=== PATIENT | male | born 1990 | race Caucasian/White ===

== ENCOUNTER 2017-12-25 22:28 | Emergency (ER) | payer MEDICARE, MEDICAID ==
[~2017-12-25] VITALS: Ht 177.8 cm; Wt 147.4 kg
--- NOTE | 2017-12-25 23:12 | ED Chest Pain ---
General Chief Complaint: Chest Pain Stated Complaint: CP Nursing Triage Note: PT TO ED 4 W/ C/O CHEST PAIN ONSET 15-30MIN [employer] WHILE AT [facility]. DENIES N/V, NO OTHER C/O VOICED Nursing Sepsis Screen: No Definite Risk Source: patient, other Exam Limitations: no limitations History of Present Illness Date Seen by Provider: Dec 25, 2017 Time Seen by Provider: 23:00 Initial Comments Patient presents to the ER by EMS with a chief complaint that he started having pretty severe pounding chest pain in his left chest that went down his left arm. No numbness nontender his neck or jaw. No sweats no nausea. He is mild shortness of breath but no cough. No fevers chills or vomiting. He has no prior history of coronary artery disease but he says he has a lot of heart disease in his family. No primary family with coronary artery disease before the age of 50 that he knows of. He does not have thyroid problems but he does have high blood pressure for which he took his blood pressure medicine this morning. Says his blood pressure was very elevated 170 systolic when EMS got there they gave him aspirin, nitroglycerin and his blood pressure improved and his pain improved but is now starting to come back about a 6 out of 10. No tobacco use. He denies a history of diabetes, hypercholesterolemia or thyroid disorder Allergies and Home Medications Allergies Coded Allergies: No Known Drug Allergies (Unverified , 12/25/17) Patient Home Medication List Home Medication List Reviewed: Yes Review of Systems Constitutional: No chills, No diaphoresis EENTM: No Eye Pain, No Ear Pain Respiratory: Denies Cough, Shortness of Air, SOA at Rest (mild) Cardiovascular: See HPI, Chest Pain, Denies Edema, Denies Irregular Heart Rate , Denies Lightheadedness, Palpitations, Denies Syncope Gastrointestinal: Denies Constipated, Denies Diarrhea, Denies Nausea, Denies Vomiting Genitourinary: Denies Burning, Denies Discharge Musculoskeletal: No back pain, No joint pain Skin: No pruritus, No rash Psychiatric/Neurological: Denies Headache, Denies Numbness, Denies Paresthesia Past Besrkxd-Ekpjus-Awihtk Hx Patient Social History Alcohol Use: Denies Use Recreational Drug Use: No Smoking Status: Never a Smoker Recent Foreign Travel: No Contact w/Someone Who Travel: No Recent Infectious Disease Expo: No Recent Hopitalizations: No Physical Abuse: No Sexual Abuse: No Mistreated: No Fear: No Surgeries History of Surgeries: No Respiratory History of Respiratory Disorde: No Cardiovascular History of Cardiac Disorders: Yes Cardiac Disorders: Hypertension Neurological History of Neurological Disord: Yes Neurological Disorders: Seizure Disorder Genitourinary History of Genitourinary Disor: No Gastrointestinal History of Gastrointestinal Di: No Musculoskeletal History of Musculoskeletal Dis: No Endocrine History of Endocrine Disorders: No HEENT History of HEENT Disorders: No Cancer History of Cancer: No Psychosocial History of Psychiatric Problem: No Suicide Risk Score: 0 Integumentary History of Skin or Integumenta: No Physical Exam Vital Signs Vital Signs - First Documented 12/25/17 22:29 Temp 98.1 Pulse 116 Resp 20 B/P (MAP) 150/113 (125) Pulse Ox 95 O2 Delivery Room Air Capillary Refill : Less Than 3 Seconds General Appearance: No Apparent Distress, Obese HEENT: PERRL/EOMI, Pharynx Normal Neck: Full Range of Motion, Non Tender, Supple Respiratory: Chest Non Tender, Lungs Clear, Normal Breath Sounds, No Accessory Muscle Use, No Respiratory Distress Cardiovascular: Regular Rate, Rhythm, No Edema, No JVD, No Murmur, Normal Peripheral Pulses Gastrointestinal: Normal Bowel Sounds, Non Tender, Soft Extremity: Normal Capillary Refill, Non Tender, No Pedal Edema Neurologic/Psychiatric: Alert, Oriented x3, No Motor/Sensory Deficits, Normal Mood/Affect Skin: Normal Color, Warm/Dry Progress/Results/Core Measures Results/Orders Lab Results Laboratory Tests Test 12/25/17 22:44 Range/Units White Blood Count 13.5 H 4.3-11.0 10^3/uL Red Blood Count 5.46 4.35-5.85 10^6/uL Hemoglobin 16.5 13.3-17.7 G/DL Hematocrit 47 40-54 % Mean Corpuscular Volume 86 80-99 FL Mean Corpuscular Hemoglobin 30 25-34 PG Mean Corpuscular Hemoglobin Concent 35 32-36 G/DL Red Cell Distribution Width 13.2 10.0-14.5 % Platelet Count 354 130-400 10^3/uL Mean Platelet Volume 9.2 7.4-10.4 FL Neutrophils (%) (Auto) 68 42-75 % Lymphocytes (%) (Auto) 25 12-44 % Monocytes (%) (Auto) 7 0-12 % Eosinophils (%) (Auto) 1 0-10 % Basophils (%) (Auto) 0 0-10 % Neutrophils # (Auto) 9.2 H 1.8-7.8 X 10^3 Lymphocytes # (Auto) 3.3 1.0-4.0 X 10^3 Monocytes # (Auto) 0.9 0.0-1.0 X 10^3 Eosinophils # (Auto) 0.1 0.0-0.3 10^3/uL Basophils # (Auto) 0.0 0.0-0.1 10^3/uL Prothrombin Time 13.2 12.2-14.7 SEC INR Comment 1.0 0.8-1.4 Activated Partial Thromboplast Time 31 24-35 SEC Sodium Level 141 135-145 MMOL/L Potassium Level 3.6 3.6-5.0 MMOL/L Chloride Level 107 98-107 MMOL/L Carbon Dioxide Level 23 21-32 MMOL/L Anion Gap 11 5-14 MMOL/L Blood Urea Nitrogen 16 7-18 MG/DL Creatinine 0.94 0.60-1.30 MG/DL Estimat Glomerular Filtration Rate > 60 BUN/Creatinine Ratio 17 Glucose Level 106 H 70-105 MG/DL Calcium Level 9.6 8.5-10.1 MG/DL Magnesium Level 2.3 1.8-2.4 MG/DL Total Bilirubin 0.8 0.1-1.0 MG/DL Aspartate Amino Transf (AST/SGOT) 19 5-34 U/L Alanine Aminotransferase (ALT/SGPT) 21 0-55 U/L Alkaline Phosphatase 75 40-136 U/L Myoglobin 31.9 10.0-92.0 NG/ML Troponin I < 0.30 <0.30 NG/ML B-Type Natriuretic Peptide < 10.0 <100.0 PG/ML Total Protein 7.9 6.4-8.2 GM/DL Albumin 4.5 3.2-4.5 GM/DL Lipase 13 8-78 U/L My Orders Orders - COLLEEN CAMPOS Cbc With Automated Diff (12/25/17 23:30) Magnesium (12/25/17 23:30) Cardiac Profile 1 (12/25/17 23:30) Comprehensive Metabolic Panel (12/25/17 23:30) Myoglobin Serum (12/25/17 23:30) Protime With Inr (12/25/17 23:30) Partial Thromboplastin Time (12/25/17 23:30) O2 (12/25/17 23:30) Monitor-Rhythm Ecg Trace Only (12/25/17 23:30) Lipid Panel (12/26/17 06:00) Aspirin Chewable Tablet (Baby Aspirin Ch (12/25/17 23:30) Nitroglycerin 0.4 Mg Btl 25's (Nitrostat (12/25/17 23:30) Saline Lock/Iv-Start (12/25/17 23:30) Lipase (12/25/17 23:30) BNP (12/25/17 23:30) Medications Given in ED Current Medications Medications Dose Ordered Sig/Chelsey Route Start Time Stop Time Status Last Admin Dose Admin Aspirin 81 mg ONCE ONCE PO 12/25/17 23:30 12/25/17 23:32 DC 12/25/17 23:46 81 MG Nitroglycerin 0.4 mg UD PRN SL 12/25/17 23:30 12/25/17 23:46 0.4 MG Vital Signs/I&O Vital Sign - Last 12Hours 12/25/17 12/25/17 22:29 22:29 Temp 98.1 Pulse 116 Resp 20 B/P (MAP) 150/113 (125) Pulse Ox 95 O2 Delivery Room Air Room Air Blood Pressure Mean: 125 Progress Note : Time: 23:09 Progress Note ED ACS score is 13 point which is low and recommends a delta troponin rule out in the ER. Pain is not reproducible and see if there is in a pulmonary cause. Nitroglycerin seem to help his pain. ECG Initial ECG Impression Date: Dec 25, 2017 Initial ECG Impression Time: 22:28 Initial ECG Rate: 117 Initial ECG Rhythm: Normal Sinus Initial ECG Intervals: Normal Initial ECG Impression: Normal Initial ECG Comparisson: No Previous ECG Available Comment There is some artifact in the anterior leads making it look like atrial flutter however inferior leads show pretty good P waves. The QRS complexes are very regular. No ST segment elevation or depression. Diagnostic Imaging Diagonstic Imaging: Xray (2v) Plain Films/CT/US/NM/MRI: chest Comments No acute cardiopulmonary processes noted. Reviewed: Reviewed by Me Consults Consults : Consulting Physician: JAMIE BARBOSA MD [facility] Consults Notes Discussed the case vital signs EKG troponin x-ray with Dr. Barbosa and how the patient has been trying to get his primary care physician to refer him to a steam meter reader might play into why he came tonight. Dr. Barbosa says he would be willing to see him in the clinic Friday or Friday. He would also like to start him on metoprolol XL 50 mg daily. Departure Impression Impression: Primary Impression: Chest pain Qualified Codes: R07.9 - Chest pain, unspecified Disposition: HOME, SELF-CARE Condition: Stable Departure-Patient Inst. Decision time for Depature: 00:41 Referrals: UNKNOWN (PCP) Primary Care Physician Patient Instructions: Chest Pain (DC) Add. Discharge Instructions: Tomorrow morning call Dr. Oglesby's office at [phone] and requests an appointment for next week. Go to the pharmacy and picker/puller the new increased dose of 50 mg metoprolol XL and start taking 1 tablet daily in addition to your 100mg tablet for a total of 150mg daily. All discharge instructions reviewed with patient and/or family. Voiced understanding. Scripts Metoprolol Succinate (Metoprolol Succinate) 50 Mg Tab.er.24h 50 MG PO DAILY for 30 Days, #30 TAB 0 Refills Prov: COLLEEN CAMPOS 12/26/17 Copy Copies To 1: JAMIE BARBOSA MD [facility] COLLEEN CAMPOS Dec 25, 2017 23:11
[2017-12-25] MEDS ORDERED: ASPIRIN 81 MG CHEW (CHILDREN'S ASA) PO ONE (23:30)
[2017-12-25] MEDS ORDERED: NITROGLYCERIN 0.4 MG SL TABS BTL 25'S SL PRN (23:30)
[2017-12-25 23:38] LABS: BASOPHILS % (AUTO) 0 % (0-10); EOSINOPHILS # (AUTO) 0.1 10^3/uL (0.0-0.3); EOSINOPHILS % (AUTO) 1 % (0-10); HEMATOCRIT 47 % (40-54); HEMOGLOBIN 16.5 G/DL (13.3-17.7); LYMPHOCYTES # (AUTO) 3.3 X 10^3 (1.0-4.0); LYMPHOCYTES % (AUTO) 25 % (12-44); MEAN CORPUSCULAR HEMOGLOBIN 30 PG (25-34); MEAN CORPUSCULAR HGB CONC 35 G/DL (32-36); MEAN CORPUSCULAR VOLUME 86 FL (80-99); MEAN PLATELET VOLUME 9.2 FL (7.4-10.4); MONOCYTES # (AUTO) 0.9 X 10^3 (0.0-1.0); MONOCYTES % (AUTO) 7 % (0-12); NEUTROPHILS # (AUTO) 9.2 X 10^3 (1.8-7.8); NEUTROPHILS % (AUTO) 68 % (42-75); PLATELET COUNT 354 10^3/uL (130-400); RED BLOOD COUNT 5.46 10^6/uL (4.35-5.85); RED CELL DISTRIBUTION WIDTH 13.2 % (10.0-14.5); WHITE BLOOD COUNT 13.5 10^3/uL (4.3-11.0)
[2017-12-25 23:47] LABS: PROTHROMBIN TIME PATIENT 13.2 SEC (12.2-14.7)
[2017-12-26 00:05] LABS: ALANINE AMINOTRANSFERASE 21 U/L (0-55); ALBUMIN 4.5 GM/DL (3.2-4.5); ALKALINE PHOSPHATASE 75 U/L (40-136); BILIRUBIN,TOTAL 0.8 MG/DL (0.1-1.0); BUN/CREATININE RATIO 17; CALCIUM 9.6 MG/DL (8.5-10.1); CARBON DIOXIDE 23 MMOL/L (21-32); CHLORIDE 107 MMOL/L (98-107); CREATININE SERUM 0.94 MG/DL (0.60-1.30); GFR ESTIMATED > 60; GLUCOSE 106 MG/DL (70-105); LIPASE 13 U/L (8-78); MAGNESIUM 2.3 MG/DL (1.8-2.4); POTASSIUM 3.6 MMOL/L (3.6-5.0); SODIUM 141 MMOL/L (135-145); TOTAL PROTEIN 7.9 GM/DL (6.4-8.2)
[2017-12-26 00:12] LABS: MYOGLOBIN SERUM 31.9 NG/ML (10.0-92.0)
[2017-12-26] MEDS ORDERED: METO-370 PO (00:40)
[2017-12-26 00:49] VITALS: BP 114/82
--- NOTE | 2017-12-26 07:34 | Diagnostic Imaging Report ---
Patient History: Chest pain. Technique: Two views of the chest Comparison: None FINDINGS: The lung volumes are mildly low. There are mild opacities in the left lower lobe. No large pleural effusion or pneumothorax is seen. The cardiomediastinal silhouette is normal in size and contour. No acute osseous abnormality is seen. IMPRESSION: Low lung volumes with mild airspace opacities in the left lower lobe, may represent atelectasis or infiltrate. Please correlate with history. Dictated by: Dictated on workstation # [id number]
== END 2017-12-26 00:49 | disposition home or self-care (01) ==
LOC: ER 22:29
DX: R07.89 Other chest pain (principal); I10 Essential (primary) hypertension; G40.909 Epilepsy, unspecified, not intractable, without status epilepticus
CPT/HCPCS: 36415; 71046; 80053; 83690; 83735; 83874; 83880; 84484; 85025; 85610; 85730; 93005; 93041